=== PATIENT | male | born 1960 | race Hispanic/Latino ===

== ENCOUNTER 2021-10-29 08:44 | Inpatient (IN) | payer BC, MEDICARE ==
[2021-10-29] MEDS ORDERED: SODIUM CHLORIDE 0.9% 1000 ML 1,000 ML IV ONE (09:34)
--- NOTE | 2021-10-29 09:40 | Emergency Department Report ---
ED Altered Mental Status HPI - General Chief Complaint: Altered Mental Status Stated Complaint: AMS Time Seen by Provider: 10/29/21 09:10 Source: patient, EMS Mode of arrival: Stretcher Limitations: Altered Mental Status - History of Present Illness Initial Comments: 61-year-old male with a history of chronic back pain for the last 20 years on multiple opioid pain including fentanyl patch and Percocet, also with diagnosis of Parkinson disease in the last 1 year taking beta-adonis brought in this morning with altered mental status by the spouse. According to spouse patient usually need help to put on his socks and shoes but this morning was not able to get up and put weight on his legs because of weakness. Patient also was evaluated for right lower leg DVT about 5 to 6 days ago in the emergency room and noted to be negative for any blood clots. Patient continued to have red rash on the right lower leg associated with warmth. He also have been scratching the left lower leg as well with few abrasion. No fever or chills reported specifically. Patient and spouse also report that he has been complaining of burning in urination but no urgency. No other modifying or associated factors reported. When asked patient reported that he did not know what is going on but does not appear confused. - Related Data Home Medications Medication Instructions Recorded Confirmed Last Taken Furosemide [Lasix TAB] 20 mg PO QDAY 10/30/21 10/30/21 Unknown Multivit-Min/FA/Lycopen/Lutein 1 tab PO DAILY 10/30/21 10/30/21 10/29/21 [Centrum Silver Tablet] Oxycodone HCl/Acetaminophen 1 each PO QID 10/30/21 10/30/21 Unknown [Oxycodone-Acetaminophen 10-325] Potassium Chloride [Klor-Con M10] 10 meq PO QDAY 10/30/21 10/30/21 Unknown Primidone [Mysoline] 100 mg PO QID 10/30/21 10/30/21 Unknown fentaNYL 12 MCG/HR Patch 72hr 12 mcg TD Q72H 10/30/21 10/30/21 10/30/21 [DURAGESIC 12 MCG/HR Patch 72hr] fentaNYL 25 MCG/HR Patch 72hr 25 mcg TD Q3D 10/30/21 10/30/21 10/30/21 [DURAGESIC 25 MCG/HR Patch 72hr] methOCARBAMOL [Robaxin TAB] 750 mg PO QDAY PRN 10/30/21 10/30/21 Unknown propranoloL [Inderal] 30 mg PO BID 10/30/21 10/30/21 Unknown Previous Rx's Medication Instructions Recorded Last Taken Type Amoxicillin/K Clav Tab [Augmentin 1 tab PO Q12HR #10 tab 10/31/21 Unknown Rx 875 mg] Allergies Allergy/AdvReac Type Severity Reaction Status Date / Time Penicillins Allergy burning Verified 10/30/21 10:32 vancomycin Allergy burning Verified 10/30/21 10:33 ED Review of Systems ROS: Stated complaint: AMS Other details as noted in HPI Comment: All other systems reviewed and negative Neurological: other (Altered mental status change) ED Past Medical Hx - Medications Home Medications: Home Medications Medication Instructions Recorded Confirmed Last Taken Type Furosemide [Lasix TAB] 20 mg PO QDAY 10/30/21 10/30/21 Unknown History Multivit-Min/FA/Lycopen/Lutein 1 tab PO DAILY 10/30/21 10/30/21 10/29/21 History [Centrum Silver Tablet] Oxycodone HCl/Acetaminophen 1 each PO QID 10/30/21 10/30/21 Unknown History [Oxycodone-Acetaminophen 10-325] Potassium Chloride [Klor-Con M10] 10 meq PO QDAY 10/30/21 10/30/21 Unknown History Primidone [Mysoline] 100 mg PO QID 10/30/21 10/30/21 Unknown History fentaNYL 12 MCG/HR Patch 72hr 12 mcg TD Q72H 10/30/21 10/30/21 10/30/21 History [DURAGESIC 12 MCG/HR Patch 72hr] fentaNYL 25 MCG/HR Patch 72hr 25 mcg TD Q3D 10/30/21 10/30/21 10/30/21 History [DURAGESIC 25 MCG/HR Patch 72hr] methOCARBAMOL [Robaxin TAB] 750 mg PO QDAY PRN 10/30/21 10/30/21 Unknown History propranoloL [Inderal] 30 mg PO BID 10/30/21 10/30/21 Unknown History Amoxicillin/K Clav Tab [Augmentin 1 tab PO Q12HR #10 tab 10/31/21 Unknown Rx 875 mg] ED Physical Exam - General Limitations: Altered Mental Status General appearance: alert, in no apparent distress - Head Head exam: Present: atraumatic, normal inspection - Eye Eye exam: Present: normal appearance Pupils: Present: normal accommodation - ENT ENT exam: Present: normal exam, normal orophraynx, mucous membranes dry - Neck Neck exam: Present: normal inspection, full ROM. Absent: tenderness - Respiratory Respiratory exam: Present: normal lung sounds bilaterally. Absent: respiratory distress, accessory muscle use - Cardiovascular Cardiovascular Exam: Present: regular rate, normal rhythm, normal heart sounds - GI/Abdominal GI/Abdominal exam: Present: soft, normal bowel sounds. Absent: distended, tenderness - Extremities Exam Extremities exam: Present: tenderness (With mild blanchable erythema noted bilaterally associated with warmth) - Back Exam Back exam: Absent: tenderness - Neurological Exam Neurological exam: Present: alert, oriented X3 - Psychiatric Psychiatric exam: Present: normal affect - Skin Skin exam: Present: warm, rash (Consistent with cellulitis), erythema ED Course Vital Signs 10/29/21 10/29/21 10/29/21 08:44 09:06 09:15 Temperature 99.3 F Pulse Rate 80 82 77 Respiratory 18 20 24 Rate Blood Pressure 152/59 Blood Pressure 147/62 [Left] O2 Sat by Pulse 96 98 97 Oximetry 10/29/21 10/29/21 10/29/21 09:31 09:45 09:53 Temperature Pulse Rate 88 92 H Respiratory 20 19 Rate Blood Pressure 145/63 145/63 Blood Pressure [Left] O2 Sat by Pulse 97 98 99 Oximetry 10/29/21 10/29/21 10/29/21 10:01 10:15 10:31 Temperature Pulse Rate 91 H 84 89 Respiratory 21 22 20 Rate Blood Pressure 157/79 157/79 154/70 Blood Pressure [Left] O2 Sat by Pulse 98 97 98 Oximetry 10/29/21 10/29/21 10/29/21 10:45 11:01 11:15 Temperature Pulse Rate 92 H Respiratory 16 16 Rate Blood Pressure 154/70 159/83 159/83 Blood Pressure [Left] O2 Sat by Pulse 98 85 99 Oximetry 10/29/21 10/29/21 10/29/21 11:31 11:45 12:01 Temperature Pulse Rate Respiratory Rate Blood Pressure 148/72 148/72 152/77 Blood Pressure [Left] O2 Sat by Pulse 98 99 97 Oximetry 10/29/21 10/29/21 10/29/21 12:15 12:31 12:45 Temperature Pulse Rate Respiratory Rate Blood Pressure 152/77 145/74 152/77 Blood Pressure [Left] O2 Sat by Pulse 98 96 97 Oximetry 10/29/21 10/29/21 10/29/21 13:00 14:42 14:45 Temperature Pulse Rate 92 H Respiratory 20 Rate Blood Pressure 145/74 154/77 154/77 Blood Pressure [Left] O2 Sat by Pulse 97 99 99 Oximetry 10/29/21 10/29/21 10/29/21 15:00 15:16 15:31 Temperature Pulse Rate 92 H 95 H 86 Respiratory 22 22 22 Rate Blood Pressure 154/77 154/77 154/77 Blood Pressure [Left] O2 Sat by Pulse 99 98 98 Oximetry 10/29/21 10/29/21 10/29/21 15:45 16:01 16:15 Temperature Pulse Rate 87 86 87 Respiratory 22 28 H 41 H Rate Blood Pressure 162/82 162/82 162/82 Blood Pressure [Left] O2 Sat by Pulse 100 98 98 Oximetry 10/29/21 10/29/21 10/29/21 16:31 16:45 17:01 Temperature Pulse Rate 87 89 88 Respiratory 52 H 26 H 28 H Rate Blood Pressure 162/82 162/82 162/82 Blood Pressure [Left] O2 Sat by Pulse 99 98 97 Oximetry 10/29/21 10/29/21 10/29/21 17:15 17:31 17:45 Temperature Pulse Rate 88 85 Respiratory 25 H 12 Rate Blood Pressure 162/82 162/82 162/82 Blood Pressure [Left] O2 Sat by Pulse 97 98 97 Oximetry 10/29/21 10/29/21 10/29/21 18:01 18:15 18:31 Temperature Pulse Rate 89 Respiratory 28 H Rate Blood Pressure 169/82 169/82 169/82 Blood Pressure [Left] O2 Sat by Pulse 97 98 98 Oximetry 10/29/21 10/29/21 10/29/21 18:45 19:01 19:15 Temperature Pulse Rate Respiratory Rate Blood Pressure 169/82 153/77 153/77 Blood Pressure [Left] O2 Sat by Pulse 97 97 98 Oximetry 10/29/21 10/29/21 10/29/21 19:31 19:45 20:01 Temperature Pulse Rate Respiratory Rate Blood Pressure 153/77 153/77 149/81 Blood Pressure [Left] O2 Sat by Pulse 97 97 97 Oximetry 10/29/21 10/29/21 10/29/21 20:15 20:30 20:45 Temperature Pulse Rate 96 H 92 H Respiratory 26 H 23 Rate Blood Pressure 149/81 151/74 151/74 Blood Pressure [Left] O2 Sat by Pulse 98 97 97 Oximetry 10/29/21 10/29/21 10/29/21 21:01 21:15 21:31 Temperature Pulse Rate 94 H 98 H 89 Respiratory 15 16 25 H Rate Blood Pressure 149/81 149/81 149/81 Blood Pressure [Left] O2 Sat by Pulse 98 98 97 Oximetry 10/29/21 10/29/21 10/29/21 21:45 22:01 22:15 Temperature Pulse Rate 94 H 94 H 95 H Respiratory 24 13 22 Rate Blood Pressure 149/81 161/79 161/79 Blood Pressure [Left] O2 Sat by Pulse 97 97 98 Oximetry 10/29/21 10/29/21 10/29/21 22:31 22:45 22:57 Temperature Pulse Rate 89 99 H 93 H Respiratory 15 16 20 Rate Blood Pressure 161/79 161/79 161/79 Blood Pressure [Left] O2 Sat by Pulse 97 98 97 Oximetry 10/29/21 10/29/21 10/29/21 23:01 23:11 23:21 Temperature Pulse Rate 91 H 94 H 92 H Respiratory 20 18 21 Rate Blood Pressure 161/79 161/79 161/79 Blood Pressure [Left] O2 Sat by Pulse 98 98 97 Oximetry 10/29/21 10/29/21 23:31 23:41 Temperature Pulse Rate 88 89 Respiratory 20 15 Rate Blood Pressure 161/79 161/79 Blood Pressure [Left] O2 Sat by Pulse 98 98 Oximetry - Reevaluation(s) Reevaluation #1: 10/29/21 14:22 Pt signed out to Dr Solis while waiting for CT abd/pel result and treatment response on lactulose -- - Lab Data Result diagrams: 10/29/21 10:00 10/30/21 04:36 Lab Results 10/29/21 10/29/21 10/29/21 Range/Units 10:00 10:00 10:00 WBC 10.7 (4.5-11.0) K/mm3 RBC 3.95 (3.65-5.03) M/mm3 Hgb 12.6 (11.8-15.2) gm/dl Hct 36.6 (35.5-45.6) % MCV 93 (84-94) fl MCH 32 (28-32) pg MCHC 35 H (32-34) % RDW 15.3 H (13.2-15.2) % Plt Count 83 L (140-440) K/mm3 [place] % (Auto) [employer] Advisor Add Manual Diff Complete Total Counted 100 Seg Neuts % (Manual) 71.0 H (40.0-70.0) % Band Neutrophils % 0 % Lymphocytes % (Manual) 13.0 L (13.4-35.0) % Reactive Lymphs % (Man) 2.0 % Monocytes % (Manual) 13.0 H (0.0-7.3) % Eosinophils % (Manual) 0 (0.0-4.3) % Basophils % (Manual) 1.0 (0.0-1.8) % Metamyelocytes % 0 % Myelocytes % 0 % Promyelocytes % 0 % Blast Cells % 0 % Nucleated RBC % Not Reportable Seg Neutrophils # Man 7.6 (1.8-7.7) K/mm3 Band Neutrophils # 0.0 K/mm3 Lymphocytes # (Manual) 1.4 (1.2-5.4) K/mm3 Abs React Lymphs (Man) 0.2 K/mm3 Monocytes # (Manual) 1.4 H (0.0-0.8) K/mm3 Eosinophils # (Manual) 0.0 (0.0-0.4) K/mm3 Basophils # (Manual) 0.1 (0.0-0.1) K/mm3 Metamyelocytes # 0.0 K/mm3 Myelocytes # 0.0 K/mm3 Promyelocytes # 0.0 K/mm3 Blast Cells # 0.0 K/mm3 WBC Morphology Not Reportable Hypersegmented Neuts Not Reportable Hyposegmented Neuts Few Hypogranular Neuts Not Reportable Smudge Cells Not Reportable Toxic Granulation Not Reportable Toxic Vacuolation Not Reportable Dohle Bodies Not Reportable Pelger-Huet Anomaly Not Reportable Usman Rods Not Reportable Platelet Estimate Consistent w auto Clumped Platelets Not Reportable Plt Clumps, EDTA Not Reportable Large Platelets Not Reportable Giant Platelets Not Reportable Platelet Satelliting Not Reportable Plt Morphology Comment Not Reportable RBC Morphology Not Reportable Dimorphic RBCs Not Reportable Polychromasia Rare Hypochromasia Not Reportable Poikilocytosis Not Reportable Anisocytosis 1+ Microcytosis Few Macrocytosis Not Reportable Spherocytes Not Reportable Pappenheimer Bodies Not Reportable Sickle Cells Not Reportable Target Cells Not Reportable Tear Drop Cells Not Reportable Ovalocytes Not Reportable Helmet Cells Not Reportable [place] Bodies Not Reportable [place] Rings Not Reportable Xavier Cells Not Reportable Bite Cells Not Reportable Crenated Cell Not Reportable Elliptocytes Not Reportable Acanthocytes (Spur) Not Reportable Rouleaux Not Reportable Hemoglobin C Crystals Not Reportable Schistocytes Not Reportable Malaria parasites Not Reportable Jose Bodies Not Reportable Hem Pathologist Commnt No PT 19.2 H (12.2-14.9) Sec. INR 1.43 H (0.87-1.13) APTT 39.6 H (24.2-36.6) Sec. Sodium (137-145) mmol/L Potassium (3.6-5.0) mmol/L Chloride (98-107) mmol/L Carbon Dioxide (22-30) mmol/L Anion Gap mmol/L BUN (9-20) mg/dL Creatinine (0.8-1.3) mg/dL Estimated GFR ml/min BUN/Creatinine Ratio % Glucose (75-100) mg/dL Lactic Acid 2.30 H* (0.7-2.0) mmol/L Calcium (8.4-10.2) mg/dL Total Bilirubin (0.1-1.2) mg/dL AST (5-40) units/L ALT (7-56) units/L Alkaline Phosphatase (35-129) units/L Ammonia (25-60) umol/L Troponin T (0.00-0.029) ng/mL Total Protein (6.3-8.2) g/dL Albumin (3.9-5) g/dL Albumin/Globulin Ratio % Urine Color (Yellow) Urine Turbidity (Clear) Urine pH (5.0-7.0) Ur Specific [place] (1.003-1.030) Urine Protein (Negative) mg/dL Urine Glucose (UA) (Negative) mg/dL Urine Ketones (Negative) mg/dL Urine Blood (Negative) Urine Nitrite (Negative) Ur Reducing Substances Urine Bilirubin (Negative) Urine Ictotest Urine Urobilinogen (<2.0) mg/dL Ur Leukocyte Esterase (Negative) Urine WBC (Auto) (0.0-6.0) /HPF Urine RBC (Auto) (0.0-6.0) /HPF U Epithel Cells (Auto) (0-13.0) /HPF Salicylates (2.8-20.0) mg/dL Urine Opiates Screen Urine Methadone Screen Acetaminophen (10.0-30.0) ug/mL Ur Barbiturates Screen Ur Phencyclidine Scrn Ur Amphetamines Screen U Benzodiazepines Scrn Urine Cocaine Screen U Marijuana (THC) Screen Drugs of Abuse Note 10/29/21 10/29/21 10/29/21 Range/Units 10:00 10:00 10:00 WBC (4.5-11.0) K/mm3 RBC (3.65-5.03) M/mm3 Hgb (11.8-15.2) gm/dl Hct (35.5-45.6) % MCV (84-94) fl MCH (28-32) pg MCHC (32-34) % RDW (13.2-15.2) % Plt Count (140-440) K/mm3 [place] % (Auto) Add Manual Diff Total Counted Seg Neuts % (Manual) (40.0-70.0) % Band Neutrophils % % Lymphocytes % (Manual) (13.4-35.0) % Reactive Lymphs % (Man) % Monocytes % (Manual) (0.0-7.3) % Eosinophils % (Manual) (0.0-4.3) % Basophils % (Manual) (0.0-1.8) % Metamyelocytes % % Myelocytes % % Promyelocytes % % Blast Cells % % Nucleated RBC % Seg Neutrophils # Man (1.8-7.7) K/mm3 Band Neutrophils # K/mm3 Lymphocytes # (Manual) (1.2-5.4) K/mm3 Abs React Lymphs (Man) K/mm3 Monocytes # (Manual) (0.0-0.8) K/mm3 Eosinophils # (Manual) (0.0-0.4) K/mm3 Basophils # (Manual) (0.0-0.1) K/mm3 Metamyelocytes # K/mm3 Myelocytes # K/mm3 Promyelocytes # K/mm3 Blast Cells # K/mm3 WBC Morphology Hypersegmented Neuts Hyposegmented Neuts Hypogranular Neuts Smudge Cells Toxic Granulation Toxic Vacuolation Dohle Bodies Pelger-Huet Anomaly Usman Rods Platelet Estimate Clumped Platelets Plt Clumps, EDTA Large Platelets Giant Platelets Platelet Satelliting Plt Morphology Comment RBC Morphology Dimorphic RBCs Polychromasia Hypochromasia Poikilocytosis Anisocytosis Microcytosis Macrocytosis Spherocytes Pappenheimer Bodies Sickle Cells Target Cells Tear Drop Cells Ovalocytes Helmet Cells [place] Bodies [place] Rings [place] Cells Bite Cells Crenated Cell Elliptocytes Acanthocytes (Spur) Rouleaux Hemoglobin C Crystals Schistocytes Malaria parasites Jose Bodies Hem Pathologist Commnt PT (12.2-14.9) Sec. INR (0.87-1.13) APTT (24.2-36.6) Sec. Sodium 135 L (137-145) mmol/L Potassium 3.8 (3.6-5.0) mmol/L Chloride 99.4 (98-107) mmol/L Carbon Dioxide 22 (22-30) mmol/L Anion Gap 17 mmol/L BUN 14 (9-20) mg/dL Creatinine 0.7 L (0.8-1.3) mg/dL Estimated GFR > 60 ml/min BUN/Creatinine Ratio 20 % Glucose 113 H (75-100) mg/dL Lactic Acid (0.7-2.0) mmol/L Calcium 8.4 (8.4-10.2) mg/dL Total Bilirubin 3.40 H (0.1-1.2) mg/dL AST 65 H (5-40) units/L ALT 25 (7-56) units/L Alkaline Phosphatase 99 (35-129) units/L Ammonia 75.0 H (25-60) umol/L Troponin T 0.013 (0.00-0.029) ng/mL Total Protein 6.6 (6.3-8.2) g/dL Albumin 3.3 L (3.9-5) g/dL Albumin/Globulin Ratio 1.0 % Urine Color (Yellow) Urine Turbidity (Clear) Urine pH (5.0-7.0) Ur Specific [place] (1.003-1.030) Urine Protein (Negative) mg/dL Urine Glucose (UA) (Negative) mg/dL Urine Ketones (Negative) mg/dL Urine Blood (Negative) Urine Nitrite (Negative) Ur Reducing Substances Urine Bilirubin (Negative) Urine Ictotest Urine Urobilinogen (<2.0) mg/dL Ur Leukocyte Esterase (Negative) Urine WBC (Auto) (0.0-6.0) /HPF Urine RBC (Auto) (0.0-6.0) /HPF U Epithel Cells (Auto) (0-13.0) /HPF Salicylates < 0.3 L (2.8-20.0) mg/dL Urine Opiates Screen Urine Methadone Screen Acetaminophen (10.0-30.0) ug/mL Ur Barbiturates Screen Ur Phencyclidine Scrn Ur Amphetamines Screen U Benzodiazepines Scrn Urine Cocaine Screen U Marijuana (THC) Screen Drugs of Abuse Note 10/29/21 10/29/21 10/29/21 Range/Units 10:00 11:28 11:28 WBC (4.5-11.0) K/mm3 RBC (3.65-5.03) M/mm3 Hgb (11.8-15.2) gm/dl Hct (35.5-45.6) % MCV (84-94) fl MCH (28-32) pg MCHC (32-34) % RDW (13.2-15.2) % Plt Count (140-440) K/mm3 [place] % (Auto) Add Manual Diff Total Counted Seg Neuts % (Manual) (40.0-70.0) % Band Neutrophils % % Lymphocytes % (Manual) (13.4-35.0) % Reactive Lymphs % (Man) % Monocytes % (Manual) (0.0-7.3) % Eosinophils % (Manual) (0.0-4.3) % Basophils % (Manual) (0.0-1.8) % Metamyelocytes % % Myelocytes % % Promyelocytes % % Blast Cells % % Nucleated RBC % Seg Neutrophils # Man (1.8-7.7) K/mm3 Band Neutrophils # K/mm3 Lymphocytes # (Manual) (1.2-5.4) K/mm3 Abs React Lymphs (Man) K/mm3 Monocytes # (Manual) (0.0-0.8) K/mm3 Eosinophils # (Manual) (0.0-0.4) K/mm3 Basophils # (Manual) (0.0-0.1) K/mm3 Metamyelocytes # K/mm3 Myelocytes # K/mm3 Promyelocytes # K/mm3 Blast Cells # K/mm3 WBC Morphology Hypersegmented Neuts Hyposegmented Neuts Hypogranular Neuts Smudge Cells Toxic Granulation Toxic Vacuolation Dohle Bodies Pelger-Huet Anomaly Usman Rods Platelet Estimate Clumped Platelets Plt Clumps, EDTA Large Platelets Giant Platelets Platelet Satelliting Plt Morphology Comment RBC Morphology Dimorphic RBCs Polychromasia Hypochromasia Poikilocytosis Anisocytosis Microcytosis Macrocytosis Spherocytes Pappenheimer Bodies Sickle Cells Target Cells Tear Drop Cells Ovalocytes Helmet Cells [place] Bodies [place] Rings Xavier Cells Bite Cells Crenated Cell Elliptocytes Acanthocytes (Spur) Rouleaux Hemoglobin C Crystals Schistocytes Malaria parasites Jose Bodies Hem Pathologist Commnt PT (12.2-14.9) Sec. INR (0.87-1.13) APTT (24.2-36.6) Sec. Sodium (137-145) mmol/L Potassium (3.6-5.0) mmol/L Chloride (98-107) mmol/L Carbon Dioxide (22-30) mmol/L Anion Gap mmol/L BUN (9-20) mg/dL Creatinine (0.8-1.3) mg/dL Estimated GFR ml/min BUN/Creatinine Ratio % Glucose (75-100) mg/dL Lactic Acid (0.7-2.0) mmol/L Calcium (8.4-10.2) mg/dL Total Bilirubin (0.1-1.2) mg/dL AST (5-40) units/L ALT (7-56) units/L Alkaline Phosphatase (35-129) units/L Ammonia (25-60) umol/L Troponin T (0.00-0.029) ng/mL Total Protein (6.3-8.2) g/dL Albumin (3.9-5) g/dL Albumin/Globulin Ratio % Urine Color Heather (Yellow) Urine Turbidity Clear (Clear) Urine pH 6.5 (5.0-7.0) Ur Specific [place] 1.010 (1.003-1.030) Urine Protein <15 mg/dl (Negative) mg/dL Urine Glucose (UA) Negative (Negative) mg/dL Urine Ketones Negative (Negative) mg/dL Urine Blood Negative (Negative) Urine Nitrite Negative (Negative) Ur Reducing Substances Not Reportable Urine Bilirubin Negative (Negative) Urine Ictotest Not Reportable Urine Urobilinogen 8.0 H (<2.0) mg/dL Ur Leukocyte Esterase Negative (Negative) Urine WBC (Auto) 2.0 (0.0-6.0) /HPF Urine RBC (Auto) 9.0 (0.0-6.0) /HPF U Epithel Cells (Auto) 2.0 (0-13.0) /HPF Salicylates (2.8-20.0) mg/dL Urine Opiates Screen Negative Urine Methadone Screen Negative Acetaminophen 5.0 L (10.0-30.0) ug/mL Ur Barbiturates Screen Positive Ur Phencyclidine Scrn Negative Ur Amphetamines Screen Negative U Benzodiazepines Scrn Negative Urine Cocaine Screen Negative U Marijuana (THC) Screen Negative Drugs of Abuse Note Disclamer 10/29/21 10/29/21 Range/Units 13:38 16:39 WBC (4.5-11.0) K/mm3 RBC (3.65-5.03) M/mm3 Hgb (11.8-15.2) gm/dl Hct (35.5-45.6) % MCV (84-94) fl MCH (28-32) pg MCHC (32-34) % RDW (13.2-15.2) % Plt Count (140-440) K/mm3 [place] % (Auto) Add Manual Diff Total Counted Seg Neuts % (Manual) (40.0-70.0) % Band Neutrophils % % Lymphocytes % (Manual) (13.4-35.0) % Reactive Lymphs % (Man) % Monocytes % (Manual) (0.0-7.3) % Eosinophils % (Manual) (0.0-4.3) % Basophils % (Manual) (0.0-1.8) % Metamyelocytes % % Myelocytes % % Promyelocytes % % Blast Cells % % Nucleated RBC % Seg Neutrophils # Man (1.8-7.7) K/mm3 Band Neutrophils # K/mm3 Lymphocytes # (Manual) (1.2-5.4) K/mm3 Abs React Lymphs (Man) K/mm3 Monocytes # (Manual) (0.0-0.8) K/mm3 Eosinophils # (Manual) (0.0-0.4) K/mm3 Basophils # (Manual) (0.0-0.1) K/mm3 Metamyelocytes # K/mm3 Myelocytes # K/mm3 Promyelocytes # K/mm3 Blast Cells # K/mm3 WBC Morphology Hypersegmented Neuts Hyposegmented Neuts Hypogranular Neuts Smudge Cells Toxic Granulation Toxic Vacuolation Dohle Bodies Pelger-Huet Anomaly Usman Rods Platelet Estimate Clumped Platelets Plt Clumps, EDTA Large Platelets Giant Platelets Platelet Satelliting Plt Morphology Comment RBC Morphology Dimorphic RBCs Polychromasia Hypochromasia Poikilocytosis Anisocytosis Microcytosis Macrocytosis Spherocytes Pappenheimer Bodies Sickle Cells Target Cells Tear Drop Cells Ovalocytes Helmet Cells [place] Bodies [place] Rings Xavier Cells Bite Cells Crenated Cell Elliptocytes Acanthocytes (Spur) Rouleaux Hemoglobin C Crystals Schistocytes Malaria parasites Jose Bodies Hem Pathologist Commnt PT (12.2-14.9) Sec. INR (0.87-1.13) APTT (24.2-36.6) Sec. Sodium (137-145) mmol/L Potassium (3.6-5.0) mmol/L Chloride (98-107) mmol/L Carbon Dioxide (22-30) mmol/L Anion Gap mmol/L BUN (9-20) mg/dL Creatinine (0.8-1.3) mg/dL Estimated GFR ml/min BUN/Creatinine Ratio % Glucose (75-100) mg/dL Lactic Acid 2.00 2.20 H* (0.7-2.0) mmol/L Calcium (8.4-10.2) mg/dL Total Bilirubin (0.1-1.2) mg/dL AST (5-40) units/L ALT (7-56) units/L Alkaline Phosphatase (35-129) units/L Ammonia (25-60) umol/L Troponin T (0.00-0.029) ng/mL Total Protein (6.3-8.2) g/dL Albumin (3.9-5) g/dL Albumin/Globulin Ratio % Urine Color (Yellow) Urine Turbidity (Clear) Urine pH (5.0-7.0) Ur Specific [place] (1.003-1.030) Urine Protein (Negative) mg/dL Urine Glucose (UA) (Negative) mg/dL Urine Ketones (Negative) mg/dL Urine Blood (Negative) Urine Nitrite (Negative) Ur Reducing Substances Urine Bilirubin (Negative) Urine Ictotest Urine Urobilinogen (<2.0) mg/dL Ur Leukocyte Esterase (Negative) Urine WBC (Auto) (0.0-6.0) /HPF Urine RBC (Auto) (0.0-6.0) /HPF U Epithel Cells (Auto) (0-13.0) /HPF Salicylates (2.8-20.0) mg/dL Urine Opiates Screen Urine Methadone Screen Acetaminophen (10.0-30.0) ug/mL Ur Barbiturates Screen Ur Phencyclidine Scrn Ur Amphetamines Screen U Benzodiazepines Scrn Urine Cocaine Screen U Marijuana (THC) Screen Drugs of Abuse Note - EKG Data -: EKG Interpreted by Me EKG shows normal: sinus rhythm Rate: normal 10/29/21 09:46 Noted with sinus arrhythmia at the rate of 85 bpm with premature ventricular complex but no ST elevation depression in this abnormal ECG. - Medical Decision Making here with AMS changes with this patient history of multiple opoiods pain medication this could be as a result of drug side effect but could not rule out other differentials that may involved pneumonia, urinary tract infection, myocardial infarction, cerebrovascular accident, liver or kidney failure, or systemic infection that leads to sepsis so in order to rule out the above we will go ahead and order routine labs that includes CBC, CMP, urinalysis, CT scan of the brain, lactic acid, chest x-ray, EKG and troponin. This could also be cellulitis considering that this patient has blanchable erythema on both legs with different stage of abrasion. In the meantime we will go ahead and start IV hydration while waiting for the above labs. CT head noted with No acute findings FINDINGS: BRAIN / INTRACRANIAL CONTENTS: No acute hemorrhage, mass effect, midline shift, hydrocephalus, or acute, large territorial infarct. No chronic infarction or encephalomalacia Left hemispheric convexity cortical sulci are more prominent than the right side; mild to moderate left perisylvian volume loss; left lateral ventricle is slightly larger than the right; these findings suggest mild volume loss in the left cerebral hemisphere Both temporal horn tips are normal suggesting normal medial temporal lobes CRANIOCERVICAL JUNCTION: No significant abnormality. ORBITS: No significant abnormality of visualized orbits. SINUSES / MASTOIDS: No significant abnormality of the visualized paranasal sinuses or mastoid air cells. ADDITIONAL FINDINGS: None. IMPRESSION: No focal mass, hemorrhage, hydrocephalus, or acute, large territorial infarct. Labs reviewed and noted with elevated AST 65 but normal ALT but abnormal T-bili with ammonia of 75 mg/dl -- this patient however did not have any history of liver cirrhosis or alcoholism. So for further evaluation the cause of hyperamminonia that could potentially cause hepatic-encephalopathy--I will go ahead and order lactulose and CT abd/pel and the gallbladder to rule out possibility of biliary tree obstruction. Critical care attestation.: If time is entered above; I have spent that time in minutes in the direct care of this critically ill patient, excluding procedure time. ED Disposition Clinical Impression: Hyperammonemia AMS (altered mental status) Qualifiers: Altered mental status type: unspecified Qualified Code(s): R41.82 - Altered mental status, unspecified Disposition: 30 STILL A PATIENT Is pt being admited?: No Does the pt Need Aspirin: No Condition: Stable Time of Disposition: 14:22
[2021-10-29 12:19] LABS: Alanine Aminotransferase 25 units/L (7-56); Albumin 3.3 g/dL (3.9-5); Blood Urea Nitrogen 14 mg/dL (9-20); Calcium 8.4 mg/dL (8.4-10.2); Hemolysis Index 25
[2021-10-29 12:25] LABS: INR 1.43 (0.87-1.13)
[2021-10-29 12:26] LABS: Partial Thromboplastin Time 39.6 Sec. (24.2-36.6)
[2021-10-29 12:27] LABS: Hematocrit 36.6 % (35.5-45.6); Hemoglobin 12.6 gm/dl (11.8-15.2); Mean Corpuscular HGB Conc 35 % (32-34); Mean Corpuscular Volume 93 fl (84-94); Red Blood Count 3.95 M/mm3 (3.65-5.03); Red Cell Distribution Width 15.3 % (13.2-15.2)
[2021-10-29 12:30] LABS: Platelet Count 83 K/mm3 (140-440)
[2021-10-29 12:56] LABS: BUN/Creatinine Ratio 20
[2021-10-29 13:23] LABS: Amphetamine Screen,Urine Negative; Benzodiazepines Screen,Urine Negative; Cannabinoid Screen,Urine Negative; Cocaine Screen,Urine Negative; Methadone Screen,Urine Negative; Opiate Screen,Urine Negative
[2021-10-29 13:25] LABS: Color,Urine Amber (Yellow)
[2021-10-29 13:26] LABS: Bilirubin,Urine Negative (Negative); Blood,Urine Negative (Negative); PH,Urine 6.5 (5.0-7.0); Protein,Urine <15 mg/dL mg/dL (Negative)
--- NOTE | 2021-10-29 13:29 | Cat Scan Report ---
NONENHANCED CT SCAN OF THE HEAD: INDICATION / CLINICAL INFORMATION: 61 years Male; Altered mental status. TECHNIQUE: Routine CT head without contrast. All CT scans at this location are performed using CT dos e reduction for ALARA by means of automated exposure control. COMPARISON: None. FINDINGS: BRAIN / INTRACRANIAL CONTENTS: No acute hemorrhage, mass effect, midline shift, hydrocephalus, or acu te, large territorial infarct. No chronic infarction or encephalomalacia Left hemispheric convexity cortical sulci are more prominent than the right side; mild to moderate le ft perisylvian volume loss; left lateral ventricle is slightly larger than the right; these findings suggest mild volume loss in the left cerebral hemisphere Both temporal horn tips are normal suggesting normal medial temporal lobes CRANIOCERVICAL JUNCTION: No significant abnormality. ORBITS: No significant abnormality of visualized orbits. SINUSES / MASTOIDS: No significant abnormality of the visualized paranasal sinuses or mastoid air jeronimo ls. ADDITIONAL FINDINGS: None. IMPRESSION: No focal mass, hemorrhage, hydrocephalus, or acute, large territorial infarct. Mild volume loss in the left cerebral hemisphere compared to the right side Signer Name: Tiny Field MD Signed: 10/29/2021 1:25 PM Workstation Name: [email or web address]
--- NOTE | 2021-10-29 13:52 | Electrocardiograph Report ---
[facility] Test Date: 2021-10-29 Test Time: 09:12:30 Pat Name: STEPHANIE PEREZ Department: Room: Gender: M Fig Washer: LAYLA : 1960 Requested By: JACE RUFF Order Number: [id number] Reading MD: Corina Walden Measurements Intervals [place] Rate: 85 P: -62 NH: 142 QRS: 6 QRSD: 89 T: QT: 394 QTc: 467 Interpretive Statements Ectopic atrial rhythm Ventricular premature complex No previous ECG available for comparison Electronically Signed On 10-29-2021 13:51:53 EDT by Corina Walden
[2021-10-29 14:24] LABS: Eosinophils % (Manual) 0 % (0.0-4.3); Total Cells Counted 100
[2021-10-29] MEDS ORDERED: LACTULOSE 20 GM/30 ML ORAL LIQD PO ONE (14:24)
[2021-10-29 14:26] LABS: Anisocytosis 1+; Platelet Estimate Consistent w Auto
--- NOTE | 2021-10-29 15:53 | Cat Scan Report ---
CT abdomen pelvis w con INDICATION: abnormal LFTs. COMPARISON: None TECHNIQUE: Abdominal and pelvic CT exam performed. All CT scans at this location are performed using CT dose reduction for ALARA by means of automated exposure control. FINDINGS: CT ABDOMEN and PELVIS: Lung Bases: No significant abnormality. Liver: The liver is small and slightly nodular in contour with caudate lobe hypertrophy. Biliary: No significant abnormality. Spleen: Spleen is enlarged. Pancreas: No significant abnormality. Adrenals: No significant abnormality. Kidneys: No significant abnormality. Lymphatics: No lymphadenopathy. Vasculature: There are paraesophageal varices. Recanalization of umbilical vein. Bowel:. There is multifocal small bowel and large bowel wall thickening with mucosal hyperemia. Niecy l appendix. Pelvis: No significant abnormality. Osseous Structures: Postoperative changes from L4-5 interbody fusion with advanced superior junction spondylosis with spinal canal and foraminal narrowing which is not well assessed on this exam No aggr essive osseous lesion. Additional Findings: Small volume ascites. IMPRESSION: 1. Findings suggest enterocolitis. 2. Cirrhosis with sequela of portal venous hypertension including small volume ascites. 3. Other chronic findings as above. Signer Name: Stuart Galicia MD Signed: 10/29/2021 3:48 PM Workstation Name: [id number]
--- NOTE | 2021-10-29 20:18 | History and Physical Report ---
History of Present Illness Chief complaint: He is weak, and more confused History of present illness: 61 YO Male with Chronic Liver disease complicated by Cirrhosis, CPS on Opioid therapy, Parkinsons Disease, Vascular Dementia, Cerebral Atherosclerosis presents to ED for evaluation. Patient is confused with diminished cognition at the time my evaluation and unable to provide history. Patient history taken EMS staff, ED staff, as well as patient who is at bedside for exam and interview. As per reports "he is more weak and confused today". Patient reports that over the past 1 week the patient has experienced increased weakness and confusion with acutely worsening symptoms over the past 24 hours. EMS was notified and upon arrival the patient was found to be in distress and subsequent transported to [facility] for further care and evaluation of the aforementioned symptoms. The patient was seen and evaluated emergency department. All lab and imaging studies reviewed. Patient found to have chr onic liver disease, hyperammonemia, hepatic encephalopathy, metabolic acidosis, malnutrition, hyponatremia, and elevated prothrombin time. Patient admitted to telemetry due to increased risk of worsening symptoms and for medical stabilization. No reports of fever, chills, chest pain, palpitation, adductive cough, skin rash, recent contact, known exposure to COVID-19. No prior admission for review. No medication listed at time of admission for reconciliation. Advanced care planning conducted in ED. Patient has diminished cognition but has a positive gag reflex and is able to protect his airway without difficulty the time my evaluation. Past History Past Medical History: other (see HPI) Past Surgical History: Other (spiine surgery) Social history: , lives with family Family history: diabetes, hypertension Medications and Allergies Allergies Allergy/AdvReac Type Severity Reaction Status Date / Time Penicillins Allergy Unknown Verified 10/29/21 08:53 Review of Systems ROS unobtainable: due to mental status Exam - Constitutional Vitals: Temp Pulse Resp BP Pulse Ox 99.3 F 89 28 H 169/82 98 10/29/21 08:44 10/29/21 18:01 10/29/21 18:01 10/29/21 18:15 10/29/21 18:15 General appearance: Present: mild distress - EENT Eyes: Present: PERRL, scleral icterus ENT: hearing intact, clear oral mucosa, hearing decreased - Neck Neck: Present: supple, normal ROM - Respiratory Respiratory effort: normal Respiratory: bilateral: diminished - Cardiovascular Rhythm: regular - Extremities Extremities: pulses symmetrical, No edema Peripheral Pulses: within normal limits - Abdominal General gastrointestinal: Present: soft, non-tender, non-distended, normal bowel sounds - Integumentary Integumentary: Present: clear, dry, clammy, decreased turgor - Musculoskeletal Musculoskeletal: generalized weakness - Psychiatric Psychiatric: no appropriate mood/affect, no intact judgment & insight, no memory intact - Neurologic Neurologic: CNII-XII intact, no focal deficits, moves all extremities, no gait normal HEART Score - HEART Score Troponin: Troponin T 0.013 ng/mL (0.00-0.029) 10/29/21 10:00 Results - Labs CBC & Chem 7: 10/29/21 10:00 10/29/21 10:00 Labs: Abnormal lab results 10/29/21 10/29/21 10/29/21 Range/Units 10:00 10:00 10:00 MCHC 35 H (32-34) % RDW 15.3 H (13.2-15.2) % Plt Count 83 L (140-440) K/mm3 Seg Neuts % (Manual) 71.0 H (40.0-70.0) % Lymphocytes % (Manual) 13.0 L (13.4-35.0) % Monocytes % (Manual) 13.0 H (0.0-7.3) % Monocytes # (Manual) 1.4 H (0.0-0.8) K/mm3 PT 19.2 H (12.2-14.9) Sec. INR 1.43 H (0.87-1.13) APTT 39.6 H (24.2-36.6) Sec. Sodium (137-145) mmol/L Creatinine (0.8-1.3) mg/dL Glucose (75-100) mg/dL Lactic Acid 2.30 H* (0.7-2.0) mmol/L Total Bilirubin (0.1-1.2) mg/dL AST (5-40) units/L Ammonia (25-60) umol/L Albumin (3.9-5) g/dL Urine Urobilinogen (<2.0) mg/dL Salicylates (2.8-20.0) mg/dL Acetaminophen (10.0-30.0) ug/mL 10/29/21 10/29/21 10/29/21 Range/Units 10:00 10:00 10:00 MCHC (32-34) % RDW (13.2-15.2) % Plt Count (140-440) K/mm3 Seg Neuts % (Manual) (40.0-70.0) % Lymphocytes % (Manual) (13.4-35.0) % Monocytes % (Manual) (0.0-7.3) % Monocytes # (Manual) (0.0-0.8) K/mm3 PT (12.2-14.9) Sec. INR (0.87-1.13) APTT (24.2-36.6) Sec. Sodium 135 L (137-145) mmol/L Creatinine 0.7 L (0.8-1.3) mg/dL Glucose 113 H (75-100) mg/dL Lactic Acid (0.7-2.0) mmol/L Total Bilirubin 3.40 H (0.1-1.2) mg/dL AST 65 H (5-40) units/L Ammonia 75.0 H (25-60) umol/L Albumin 3.3 L (3.9-5) g/dL Urine Urobilinogen (<2.0) mg/dL Salicylates < 0.3 L (2.8-20.0) mg/dL Acetaminophen (10.0-30.0) ug/mL 10/29/21 10/29/21 10/29/21 Range/Units 10:00 11:28 16:39 MCHC (32-34) % RDW (13.2-15.2) % Plt Count (140-440) K/mm3 Seg Neuts % (Manual) (40.0-70.0) % Lymphocytes % (Manual) (13.4-35.0) % Monocytes % (Manual) (0.0-7.3) % Monocytes # (Manual) (0.0-0.8) K/mm3 PT (12.2-14.9) Sec. INR (0.87-1.13) APTT (24.2-36.6) Sec. Sodium (137-145) mmol/L Creatinine (0.8-1.3) mg/dL Glucose (75-100) mg/dL Lactic Acid 2.20 H* (0.7-2.0) mmol/L Total Bilirubin (0.1-1.2) mg/dL AST (5-40) units/L Ammonia (25-60) umol/L Albumin (3.9-5) g/dL Urine Urobilinogen 8.0 H (<2.0) mg/dL Salicylates (2.8-20.0) mg/dL Acetaminophen 5.0 L (10.0-30.0) ug/mL Assessment and Plan - Patient Problems (1) Hepatic encephalopathy Current Visit: Yes Status: Acute Plan to address problem: CT scan head, neuro check, seizure precaution, aspiration precautions, lactulose, supportive care, (2) Chronic liver disease and cirrhosis Current Visit: Yes Status: Acute Plan to address problem: Supportive care, outpatient GI follow-up. (3) Hyponatremia syndrome Current Visit: Yes Status: Acute Plan to address problem: IV fluid resuscitation therapy, BMP, repeat BMP in a.m., monitor fluid balance. (4) Esophageal varices Current Visit: Yes Status: Acute Qualifiers: Esophageal varices bleeding: without bleeding Plan to address problem: Chronic, supportive care. Outpatient GI follow-up. No active bleeding at this time. (5) Metabolic acidosis Current Visit: Yes Status: Acute Plan to address problem: IV for resuscitation therapy, BMP, repeat BMP in AM. (6) Chronic pain syndrome Current Visit: Yes Status: Acute Plan to address problem: Pain control, supportive care, steroid taper, continue medical management. Monitor acetaminophen level. (7) Elevated partial thromboplastin time (PTT) Current Visit: Yes Status: Acute Plan to address problem: Suspected secondary to chronic liver disease, continue to monitor. No active bleeding at this time. (8) DVT prophylaxis Current Visit: Yes Status: Acute Plan to address problem: SCD to bilateral lower extremities while in bed (9) Advance care planning Current Visit: Yes Status: Acute Plan to address problem: Disease education data, care plan discussed, diagnoses discussed, prognosis di scussed, patient is full code, patient acknowledges understanding and agreement with care plan, +30 minutes. (10) Preventative health care Current Visit: Yes Status: Acute Plan to address problem: Patient and family counseled regarding home safety, fall precautions, outpatient follow-up with primary care physician for all age and risk factor appropriate screening test. +30 minutes.
[2021-10-29] MEDS ORDERED: ALBUTEROL 2.5 MG/3 ML NEBU IH PRN (20:38)
[2021-10-29] MEDS ORDERED: HYDROmorphone 0.5 MG/0.5 ML INJ IV PRN (20:38)
[2021-10-29] MEDS ORDERED: ONDANSETRON 4 MG/2 ML INJ IV PRN (20:38)
[2021-10-29] MEDS ORDERED: IBUPROFEN 600 MG TAB PO PRN (20:38)
[2021-10-29] MEDS ORDERED: SODIUM CHLORIDE 0.9% 1000 ML 1,000 ML IV SCH (20:45)
[2021-10-30] MEDS ORDERED: IBUPROFEN 200 MG TAB PO PRN (01:06)
[2021-10-30] MEDS ORDERED: IBUPROFEN 400 MG TAB PO PRN (02:00)
[2021-10-30] MEDS: oxyCODONE /ACETAMINOPHEN 5-325MG TAB PO PRN (03:57)
[2021-10-30 06:05] LABS: Alanine Aminotransferase 21 units/L (7-56); Albumin 2.9 g/dL (3.9-5); Blood Urea Nitrogen 14 mg/dL (9-20); Hemolysis Index 1
[2021-10-30 06:07] LABS: BUN/Creatinine Ratio 20
[2021-10-30] MEDS ORDERED: MAGNESIUM SULFATE 2 GM/50 ML BAG IV ONE (06:22)
[2021-10-30] MEDS ORDERED: MAGNESIUM SULFATE 1 GM in SODIUM CHLORIDE 0.9% 50 ML IV ONE (07:30)
[2021-10-30] MEDS ORDERED: POTASSIUM CHLORIDE ER 20 MEQ TAB PO SCH (09:00)
--- NOTE | 2021-10-30 11:31 | Progress Note ---
Assessment and Plan Assessment and plan: #Sepsis #possible enterocolitis -tachycardia, febrile -Blood cultures ordered, UA and urine culture pending -CT abdomen shows possible enterocolitis -due to cirrhosis, will start rocephin for probable intraabdominal infection -c diff ordered for diarrhea -Coronavirus PCR negative #Hepatic encephalopathy-resolved -CT scan head negative for acute findings -patient back to baseline per -ammonia level 75 -he is prescribed lactulose at home but was not taking it; agreed to start #Chronic liver disease and cirrhosis #Esophageal varices -Continue propranolol and furosemide -outpatient GI follow-up. -no active bleeding at this time #Hyponatremia syndrome -likely due to cirrhosis -IV fluid resuscitation therapy, BMP, repeat BMP in a.m., monitor fluid balance #Hypokalemia -Chronic, will continue potassium supplementation #Metabolic acidosis #Lactic acidosis -resolved, likely secondary to cirrhosis #Chronic pain syndrome -continue fentanyl patch #Elevated partial thromboplastin time (PTT) -Suspected secondary to chronic liver disease, continue to monitor. No active bleeding at this time. #Advanced care planning -Disease education data, care plan discussed, diagnoses discussed, prognosis discussed, patient is full code, patient and acknowledges understanding and agreement with care plan, +30 minutes. History Interval history: No acute events overnight. Patient seen at bedside along with . Per patient back to baseline. Patient only reports having diarrhea which started once he came to the hospital. He denies fevers, chills, night sweats at home. He has no complaints at this time. Hospitalist Physical - Physical exam Narrative exam: GENERAL: Well-developed well-nourished. In no acute distress. HEENT: Normocephalic. Atraumatic. NECK: Supple. CHEST/LUNGS: CTAB on room air HEART/CARDIOVASCULAR: RRR. No murmur, rubs or gallops appreciated. ABDOMEN: +BS. Palpable liver, mild distention w/o fluid wave. Mild tenderness to palpation without rebound or guarding. SKIN: No rashes noted. NEURO: No focal motor deficit. Follows all commands. MUSCULOSKELETAL: No joint effusion EXTREMITIES: No cyanosis, clubbing or edema. PSYCH: Cooperative. - Constitutional Vitals: Temp Pulse Resp BP Pulse Ox 98.3 F 51 L 18 116/48 95 10/30/21 07:17 10/30/21 07:17 10/30/21 07:17 10/30/21 07:17 10/30/21 10:10 General appearance: Present: mild distress HEART Score - HEART Score Troponin: Troponin T 0.013 ng/mL (0.00-0.029) 10/29/21 10:00 Results - Labs CBC & Chem 7: 10/29/21 10:00 10/30/21 04:36 Labs: Laboratory Last Values WBC 10.7 K/mm3 (4.5-11.0) 10/29/21 10:00 RBC 3.95 M/mm3 (3.65-5.03) 10/29/21 10:00 Hgb 12.6 gm/dl (11.8-15.2) 10/29/21 10:00 Hct 36.6 % (35.5-45.6) 10/29/21 10:00 MCV 93 fl (84-94) 10/29/21 10:00 MCH 32 pg (28-32) 10/29/21 10:00 MCHC 35 % (32-34) H 10/29/21 10:00 RDW 15.3 % (13.2-15.2) H 10/29/21 10:00 Plt Count 83 K/mm3 (140-440) L 10/29/21 10:00 Green % (Auto) Electromechanic 10/29/21 10:00 Add Manual Diff Complete 10/29/21 10:00 Total Counted 100 10/29/21 10:00 Seg Neuts % (Manual) 71.0 % (40.0-70.0) H 10/29/21 10:00 Band Neutrophils % 0 % 10/29/21 10:00 Lymphocytes % (Manual) 13.0 % (13.4-35.0) L 10/29/21 10:00 Reactive Lymphs % (Man) 2.0 % 10/29/21 10:00 Monocytes % (Manual) 13.0 % (0.0-7.3) H 10/29/21 10:00 Eosinophils % (Manual) 0 % (0.0-4.3) 10/29/21 10:00 Basophils % (Manual) 1.0 % (0.0-1.8) 10/29/21 10:00 Metamyelocytes % 0 % 10/29/21 10:00 Myelocytes % 0 % 10/29/21 10:00 Promyelocytes % 0 % 10/29/21 10:00 Blast Cells % 0 % 10/29/21 10:00 Nucleated RBC % Not Reportable 10/29/21 10:00 Seg Neutrophils # Man 7.6 K/mm3 (1.8-7.7) 10/29/21 10:00 Band Neutrophils # 0.0 K/mm3 10/29/21 10:00 Lymphocytes # (Manual) 1.4 K/mm3 (1.2-5.4) 10/29/21 10:00 Abs React Lymphs (Man) 0.2 K/mm3 10/29/21 10:00 Monocytes # (Manual) 1.4 K/mm3 (0.0-0.8) H 10/29/21 10:00 Eosinophils # (Manual) 0.0 K/mm3 (0.0-0.4) 10/29/21 10:00 Basophils # (Manual) 0.1 K/mm3 (0.0-0.1) 10/29/21 10:00 Metamyelocytes # 0.0 K/mm3 10/29/21 10:00 Myelocytes # 0.0 K/mm3 10/29/21 10:00 Promyelocytes # 0.0 K/mm3 10/29/21 10:00 Blast Cells # 0.0 K/mm3 10/29/21 10:00 WBC Morphology Not Reportable 10/29/21 10:00 Hypersegmented Neuts Not Reportable 10/29/21 10:00 Hyposegmented Neuts Few 10/29/21 10:00 Hypogranular Neuts Not Reportable 10/29/21 10:00 Smudge Cells Not Reportable 10/29/21 10:00 Toxic Granulation Not Reportable 10/29/21 10:00 Toxic Vacuolation Not Reportable 10/29/21 10:00 Dohle Bodies Not Reportable 10/29/21 10:00 Pelger-Huet Anomaly Not Reportable 10/29/21 10:00 Usman Rods Not Reportable 10/29/21 10:00 Platelet Estimate Consistent w auto 10/29/21 10:00 Clumped Platelets Not Reportable 10/29/21 10:00 Plt Clumps, EDTA Not Reportable 10/29/21 10:00 Large Platelets Not Reportable 10/29/21 10:00 Giant Platelets Not Reportable 10/29/21 10:00 Platelet Satelliting Not Reportable 10/29/21 10:00 Plt Morphology Comment Not Reportable 10/29/21 10:00 RBC Morphology Not Reportable 10/29/21 10:00 Dimorphic RBCs Not Reportable 10/29/21 10:00 Polychromasia Rare 10/29/21 10:00 Hypochromasia Not Reportable 10/29/21 10:00 Poikilocytosis Not Reportable 10/29/21 10:00 Anisocytosis 1+ 10/29/21 10:00 Microcytosis Few 10/29/21 10:00 Macrocytosis Not Reportable 10/29/21 10:00 Spherocytes Not Reportable 10/29/21 10:00 Pappenheimer Bodies Not Reportable 10/29/21 10:00 Sickle Cells Not Reportable 10/29/21 10:00 Target Cells Not Reportable 10/29/21 10:00 Tear Drop Cells Not Reportable 10/29/21 10:00 Ovalocytes Not Reportable 10/29/21 10:00 Helmet Cells Not Reportable 10/29/21 10:00 [place] Bodies Not Reportable 10/29/21 10:00 [place] Rings Not Reportable 10/29/21 10:00 Xavier Cells Not Reportable 10/29/21 10:00 Bite Cells Not Reportable 10/29/21 10:00 Crenated Cell Not Reportable 10/29/21 10:00 Elliptocytes Not Reportable 10/29/21 10:00 Acanthocytes (Spur) Not Reportable 10/29/21 10:00 Rouleaux Not Reportable 10/29/21 10:00 Hemoglobin C Crystals Not Reportable 10/29/21 10:00 Schistocytes Not Reportable 10/29/21 10:00 Malaria parasites Not Reportable 10/29/21 10:00 Jose Bodies Not Reportable 10/29/21 10:00 Hem Pathologist Commnt No 10/29/21 10:00 PT 19.2 Sec. (12.2-14.9) H 10/29/21 10:00 INR 1.43 (0.87-1.13) H 10/29/21 10:00 APTT 39.6 Sec. (24.2-36.6) H 10/29/21 10:00 Sodium 134 mmol/L (137-145) L 10/30/21 04:36 Potassium 3.3 mmol/L (3.6-5.0) L 10/30/21 04:36 Chloride 102.6 mmol/L (98-107) 10/30/21 04:36 Carbon Dioxide 21 mmol/L (22-30) L 10/30/21 04:36 Anion Gap 14 mmol/L 10/30/21 04:36 BUN 14 mg/dL (9-20) 10/30/21 04:36 Creatinine 0.7 mg/dL (0.8-1.3) L 10/30/21 04:36 Estimated GFR > 60 ml/min 10/30/21 04:36 BUN/Creatinine Ratio 20 % 10/30/21 04:36 Glucose 119 mg/dL (75-100) H 10/30/21 04:36 Lactic Acid 1.70 mmol/L (0.7-2.0) 10/30/21 04:36 Calcium 8.0 mg/dL (8.4-10.2) L 10/30/21 04:36 Magnesium 1.60 mg/dL (1.7-2.3) L 10/30/21 04:36 Total Bilirubin 2.90 mg/dL (0.1-1.2) H 10/30/21 04:36 AST 54 units/L (5-40) H 10/30/21 04:36 ALT 21 units/L (7-56) 10/30/21 04:36 Alkaline Phosphatase 77 units/L (35-129) 10/30/21 04:36 Ammonia 75.0 umol/L (25-60) H 10/29/21 10:00 Troponin T 0.013 ng/mL (0.00-0.029) 10/29/21 10:00 Total Protein 5.7 g/dL (6.3-8.2) L 10/30/21 04:36 Albumin 2.9 g/dL (3.9-5) L 10/30/21 04:36 Albumin/Globulin Ratio 1.0 % 10/30/21 04:36 Urine Color Heather (Yellow) 10/29/21 11:28 Urine Turbidity Clear (Clear) 10/29/21 11:28 Urine pH 6.5 (5.0-7.0) 10/29/21 11:28 Ur Specific [place] 1.010 (1.003-1.030) 10/29/21 11:28 Urine Protein <15 mg/dl mg/dL (Negative) 10/29/21 11:28 Urine Glucose (UA) Negative mg/dL (Negative) 10/29/21 11:28 Urine Ketones Negative mg/dL (Negative) 10/29/21 11:28 Urine Blood Negative (Negative) 10/29/21 11:28 Urine Nitrite Negative (Negative) 10/29/21 11:28 Ur Reducing Substances Not Reportable 10/29/21 11:28 Urine Bilirubin Negative (Negative) 10/29/21 11:28 Urine Ictotest Not Reportable 10/29/21 11:28 Urine Urobilinogen 8.0 mg/dL (<2.0) H 10/29/21 11:28 Ur Leukocyte Esterase Negative (Negative) 10/29/21 11:28 Urine WBC (Auto) 2.0 /HPF (0.0-6.0) 10/29/21 11:28 Urine RBC (Auto) 9.0 /HPF (0.0-6.0) 10/29/21 11:28 U Epithel Cells (Auto) 2.0 /HPF (0-13.0) 10/29/21 11:28 Salicylates < 0.3 mg/dL (2.8-20.0) L 10/29/21 10:00 Urine Opiates Screen Negative 10/29/21 11:28 Urine Methadone Screen Negative 10/29/21 11:28 Acetaminophen 5.0 ug/mL (10.0-30.0) L 10/29/21 10:00 Ur Barbiturates Screen Positive 10/29/21 11:28 Ur Phencyclidine Scrn Negative 10/29/21 11:28 Ur Amphetamines Screen Negative 10/29/21 11:28 U Benzodiazepines Scrn Negative 10/29/21 11:28 Urine Cocaine Screen Negative 10/29/21 11:28 U Marijuana (THC) Screen Negative 10/29/21 11:28 Drugs of Abuse Note Disclamer 10/29/21 11:28 SARS-CoV-2 (PCR) Negative (Negative) 10/30/21 09:50 Schumacher/IV: Voiding Method Incontinent Active Medications - Current Medications Current Medications: Generic Name Dose Route Start Last Admin Trade Name Freq PRN Reason Stop Dose Admin Albuterol 2.5 mg 10/29/21 20:38 Albuterol 2.5 Mg/3 Ml Nebu IH Q4HRT PRN Shortness Of Breath Hydromorphone HCl 0.5 mg 10/29/21 20:38 Hydromorphone 0.5 Mg/0.5 Ml Inj IV Q6H PRN Pain , Severe (7-10) Sodium Chloride 1,000 mls @ 42 mls/hr 10/29/21 20:45 10/30/21 00:44 Nacl 0.9% 1000 Ml IV 42 mls/hr DIRECT ESPINOZA Administration Ibuprofen 400 mg 10/30/21 02:00 10/30/21 10:51 Ibuprofen 400 Mg Tab PO 400 mg Q6H PRN Administration Pain, Mild (1-3) Ibuprofen 200 mg 10/30/21 01:06 10/30/21 01:26 Ibuprofen 200 Mg Tab PO 200 mg Q6H PRN Administration Pain, Mild (1-3) Ondansetron HCl 4 mg 10/29/21 20:38 Ondansetron 4 Mg/2 Ml Inj IV Q8H PRN Nausea And Vomiting Oxycodone/Acetaminophen 1 tab 10/29/21 20:38 10/30/21 03:57 Oxycodone /Acetaminophen 5-325mg Tab PO 1 tab Q12H PRN Administration Pain, Moderate (4-6) Potassium Chloride 40 meq 10/30/21 09:00 10/30/21 08:44 Potassium Chloride Er 20 Meq Tab PO 10/30/21 14:00 40 meq ONCE@0900 ESPINOZA Administration Sodium Chloride 10 ml 10/29/21 22:00 10/30/21 10:51 Sodium Chloride 0.9% 10 Ml Flush Syringe IV 10 ml BID ESPINOZA Administration Sodium Chloride 10 ml 10/29/21 20:38 Sodium Chloride 0.9% 10 Ml Flush Syringe IV PRN PRN LINE FLUSH
[2021-10-30] MEDS ORDERED: fentaNYL 12 MCG/HR PATCH 72HR TD SCH (13:00)
[2021-10-30] MEDS: PRIMIDONE 50 MG TAB PO SCH ×3 (13:07→22:10)
[2021-10-30] MEDS: FUROSEMIDE 20 MG TAB PO SCH (13:07)
[2021-10-30] MEDS: PROPRANOLOL 10 MG TAB PO SCH (22:11)
[2021-10-31 08:16] VITALS: BP 145/84
--- NOTE | 2021-10-31 08:50 | Progress Note ---
Assessment and Plan Assessment and plan: #Sepsis #possible enterocolitis -tachycardia, febrile -Blood cultures ordered, UA and urine culture pending -CT abdomen shows possible enterocolitis -due to cirrhosis, will start rocephin for probable intraabdominal infection -c diff ordered for diarrhea -Coronavirus PCR negative #Hepatic encephalopathy-resolved -CT scan head negative for acute findings -patient back to baseline per -ammonia level 75 -he is prescribed lactulose at home but was not taking it; agreed to start #Chronic liver disease and cirrhosis #Esophageal varices -Continue propranolol and furosemide -outpatient GI follow-up. -no active bleeding at this time #Hyponatremia syndrome -likely due to cirrhosis -IV fluid resuscitation therapy, BMP, repeat BMP in a.m., monitor fluid balance #Hypokalemia -Chronic, will continue potassium supplementation #Metabolic acidosis #Lactic acidosis -resolved, likely secondary to cirrhosis #Chronic pain syndrome -continue fentanyl patch #Elevated partial thromboplastin time (PTT) -Suspected secondary to chronic liver disease, continue to monitor. No active bleeding at this time. History Interval history: Patient was seen and evaluated this morning Patient did not have any new complaints Hospitalist Physical - Physical exam Narrative exam: Not in cardiopulmonary distress. The patient appeared well nourished and normally developed. Vital signs as documented. Head exam is unremarkable. No scleral icterus . Neck is without jugular venous distension, thyromegaly, or carotid bruits. Lungs are clear to auscultation. Cardiac exam reveals regular rate and Rhythm. Abdominal exam reveals normal bowel sounds, nontender, no organomegaly. Extremities are nonedematous and both femoral and pedal pulses are normal. 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 No focal weakness. - Constitutional Vitals: Temp Pulse Resp BP Pulse Ox 98.2 F 78 18 145/84 98 10/31/21 08:15 10/31/21 08:15 10/31/21 08:15 10/31/21 08:15 10/31/21 08:15 General appearance: Present: mild distress HEART Score - HEART Score Troponin: Troponin T 0.013 ng/mL (0.00-0.029) 10/29/21 10:00 Results - Labs CBC & Chem 7: 10/29/21 10:00 10/30/21 04:36 Labs: Laboratory Last Values WBC 10.7 K/mm3 (4.5-11.0) 10/29/21 10:00 RBC 3.95 M/mm3 (3.65-5.03) 10/29/21 10:00 Hgb 12.6 gm/dl (11.8-15.2) 10/29/21 10:00 Hct 36.6 % (35.5-45.6) 10/29/21 10:00 MCV 93 fl (84-94) 10/29/21 10:00 MCH 32 pg (28-32) 10/29/21 10:00 MCHC 35 % (32-34) H 10/29/21 10:00 RDW 15.3 % (13.2-15.2) H 10/29/21 10:00 Plt Count 83 K/mm3 (140-440) L 10/29/21 10:00 [place] % (Auto) [employer] 10/29/21 10:00 Add Manual Diff Complete 10/29/21 10:00 Total Counted 100 10/29/21 10:00 Seg Neuts % (Manual) 71.0 % (40.0-70.0) H 10/29/21 10:00 Band Neutrophils % 0 % 10/29/21 10:00 Lymphocytes % (Manual) 13.0 % (13.4-35.0) L 10/29/21 10:00 Reactive Lymphs % (Man) 2.0 % 10/29/21 10:00 Monocytes % (Manual) 13.0 % (0.0-7.3) H 10/29/21 10:00 Eosinophils % (Manual) 0 % (0.0-4.3) 10/29/21 10:00 Basophils % (Manual) 1.0 % (0.0-1.8) 10/29/21 10:00 Metamyelocytes % 0 % 10/29/21 10:00 Myelocytes % 0 % 10/29/21 10:00 Promyelocytes % 0 % 10/29/21 10:00 Blast Cells % 0 % 10/29/21 10:00 Nucleated RBC % Not Reportable 10/29/21 10:00 Seg Neutrophils # Man 7.6 K/mm3 (1.8-7.7) 10/29/21 10:00 Band Neutrophils # 0.0 K/mm3 10/29/21 10:00 Lymphocytes # (Manual) 1.4 K/mm3 (1.2-5.4) 10/29/21 10:00 Abs React Lymphs (Man) 0.2 K/mm3 10/29/21 10:00 Monocytes # (Manual) 1.4 K/mm3 (0.0-0.8) H 10/29/21 10:00 Eosinophils # (Manual) 0.0 K/mm3 (0.0-0.4) 10/29/21 10:00 Basophils # (Manual) 0.1 K/mm3 (0.0-0.1) 10/29/21 10:00 Metamyelocytes # 0.0 K/mm3 10/29/21 10:00 Myelocytes # 0.0 K/mm3 10/29/21 10:00 Promyelocytes # 0.0 K/mm3 10/29/21 10:00 Blast Cells # 0.0 K/mm3 10/29/21 10:00 WBC Morphology Not Reportable 10/29/21 10:00 Hypersegmented Neuts Not Reportable 10/29/21 10:00 Hyposegmented Neuts Few 10/29/21 10:00 Hypogranular Neuts Not Reportable 10/29/21 10:00 Smudge Cells Not Reportable 10/29/21 10:00 Toxic Granulation Not Reportable 10/29/21 10:00 Toxic Vacuolation Not Reportable 10/29/21 10:00 Dohle Bodies Not Reportable 10/29/21 10:00 Pelger-Huet Anomaly Not Reportable 10/29/21 10:00 Usman Rods Not Reportable 10/29/21 10:00 Platelet Estimate Consistent w auto 10/29/21 10:00 Clumped Platelets Not Reportable 10/29/21 10:00 Plt Clumps, EDTA Not Reportable 10/29/21 10:00 Large Platelets Not Reportable 10/29/21 10:00 Giant Platelets Not Reportable 10/29/21 10:00 Platelet Satelliting Not Reportable 10/29/21 10:00 Plt Morphology Comment Not Reportable 10/29/21 10:00 RBC Morphology Not Reportable 10/29/21 10:00 Dimorphic RBCs Not Reportable 10/29/21 10:00 Polychromasia Rare 10/29/21 10:00 Hypochromasia Not Reportable 10/29/21 10:00 Poikilocytosis Not Reportable 10/29/21 10:00 Anisocytosis 1+ 10/29/21 10:00 Microcytosis Few 10/29/21 10:00 Macrocytosis Not Reportable 10/29/21 10:00 Spherocytes Not Reportable 10/29/21 10:00 Pappenheimer Bodies Not Reportable 10/29/21 10:00 Sickle Cells Not Reportable 10/29/21 10:00 Target Cells Not Reportable 10/29/21 10:00 Tear Drop Cells Not Reportable 10/29/21 10:00 Ovalocytes Not Reportable 10/29/21 10:00 Helmet Cells Not Reportable 10/29/21 10:00 [place] Bodies Not Reportable 10/29/21 10:00 [place] Rings Not Reportable 10/29/21 10:00 Xavier Cells Not Reportable 10/29/21 10:00 Bite Cells Not Reportable 10/29/21 10:00 Crenated Cell Not Reportable 10/29/21 10:00 Elliptocytes Not Reportable 10/29/21 10:00 Acanthocytes (Spur) Not Reportable 10/29/21 10:00 Rouleaux Not Reportable 10/29/21 10:00 Hemoglobin C Crystals Not Reportable 10/29/21 10:00 Schistocytes Not Reportable 10/29/21 10:00 Malaria parasites Not Reportable 10/29/21 10:00 Jose Bodies Not Reportable 10/29/21 10:00 Hem Pathologist Commnt No 10/29/21 10:00 PT 19.2 Sec. (12.2-14.9) H 10/29/21 10:00 INR 1.43 (0.87-1.13) H 10/29/21 10:00 APTT 39.6 Sec. (24.2-36.6) H 10/29/21 10:00 Sodium 134 mmol/L (137-145) L 10/30/21 04:36 Potassium 3.3 mmol/L (3.6-5.0) L 10/30/21 04:36 Chloride 102.6 mmol/L (98-107) 10/30/21 04:36 Carbon Dioxide 21 mmol/L (22-30) L 10/30/21 04:36 Anion Gap 14 mmol/L 10/30/21 04:36 BUN 14 mg/dL (9-20) 10/30/21 04:36 Creatinine 0.7 mg/dL (0.8-1.3) L 10/30/21 04:36 Estimated GFR > 60 ml/min 10/30/21 04:36 BUN/Creatinine Ratio 20 % 10/30/21 04:36 Glucose 119 mg/dL (75-100) H 10/30/21 04:36 Lactic Acid 1.70 mmol/L (0.7-2.0) 10/30/21 04:36 Calcium 8.0 mg/dL (8.4-10.2) L 10/30/21 04:36 Magnesium 1.60 mg/dL (1.7-2.3) L 10/30/21 04:36 Total Bilirubin 2.90 mg/dL (0.1-1.2) H 10/30/21 04:36 AST 54 units/L (5-40) H 10/30/21 04:36 ALT 21 units/L (7-56) 10/30/21 04:36 Alkaline Phosphatase 77 units/L (35-129) 10/30/21 04:36 Ammonia 75.0 umol/L (25-60) H 10/29/21 10:00 Troponin T 0.013 ng/mL (0.00-0.029) 10/29/21 10:00 Total Protein 5.7 g/dL (6.3-8.2) L 10/30/21 04:36 Albumin 2.9 g/dL (3.9-5) L 10/30/21 04:36 Albumin/Globulin Ratio 1.0 % 10/30/21 04:36 Urine Color [place] (Yellow) 10/29/21 11:28 Urine Turbidity Clear (Clear) 10/29/21 11:28 Urine pH 6.5 (5.0-7.0) 10/29/21 11:28 Ur Specific [place] 1.010 (1.003-1.030) 10/29/21 11:28 Urine Protein <15 mg/dl mg/dL (Negative) 10/29/21 11:28 Urine Glucose (UA) Negative mg/dL (Negative) 10/29/21 11:28 Urine Ketones Negative mg/dL (Negative) 10/29/21 11:28 Urine Blood Negative (Negative) 10/29/21 11:28 Urine Nitrite Negative (Negative) 10/29/21 11:28 Ur Reducing Substances Not Reportable 10/29/21 11:28 Urine Bilirubin Negative (Negative) 10/29/21 11:28 Urine Ictotest Not Reportable 10/29/21 11:28 Urine Urobilinogen 8.0 mg/dL (<2.0) H 10/29/21 11:28 Ur Leukocyte Esterase Negative (Negative) 10/29/21 11:28 Urine WBC (Auto) 2.0 /HPF (0.0-6.0) 10/29/21 11:28 Urine RBC (Auto) 9.0 /HPF (0.0-6.0) 10/29/21 11:28 U Epithel Cells (Auto) 2.0 /HPF (0-13.0) 10/29/21 11:28 Salicylates < 0.3 mg/dL (2.8-20.0) L 10/29/21 10:00 Urine Opiates Screen Negative 10/29/21 11:28 Urine Methadone Screen Negative 10/29/21 11:28 Acetaminophen 5.0 ug/mL (10.0-30.0) L 10/29/21 10:00 Ur Barbiturates Screen Positive 10/29/21 11:28 Ur Phencyclidine Scrn Negative 10/29/21 11:28 Ur Amphetamines Screen Negative 10/29/21 11:28 U Benzodiazepines Scrn Negative 10/29/21 11:28 Urine Cocaine Screen Negative 10/29/21 11:28 U Marijuana (THC) Screen Negative 10/29/21 11:28 Drugs of Abuse Note Disclamer 10/29/21 11:28 SARS-CoV-2 (PCR) Negative (Negative) 10/30/21 09:50 Microbiology: Microbiology 10/30/21 09:27 Peripheral/Venous Blood Culture - Preliminary Culture in Progress 10/30/21 09:27 Peripheral/Venous Blood Culture - Preliminary Culture in Progress Schumacher/IV: Voiding Method Incontinent Active Medications - Current Medications Current Medications: Generic Name Dose Route Start Last Admin Trade Name Freq PRN Reason Stop Dose Admin Albuterol 2.5 mg 10/29/21 20:38 Albuterol 2.5 Mg/3 Ml Nebu IH Q4HRT PRN Shortness Of Breath Fentanyl 1 applic 10/30/21 13:00 10/30/21 13:17 Fentanyl 12 Mcg/Hr Patch 72hr TD 1 applic Q72H ESPINOZA Administration Furosemide 20 mg 10/30/21 13:00 10/30/21 13:07 Furosemide 20 Mg Tab PO 20 mg QDAY ESPINOZA Administration Hydromorphone HCl 0.5 mg 10/29/21 20:38 Hydromorphone 0.5 Mg/0.5 Ml Inj IV Q6H PRN Pain , Severe (7-10) Sodium Chloride 1,000 mls @ 42 mls/hr 10/29/21 20:45 10/30/21 00:44 Nacl 0.9% 1000 Ml IV 42 mls/hr DIRECT ESPINOZA Administration Ibuprofen 400 mg 10/30/21 02:00 10/30/21 10:51 Ibuprofen 400 Mg Tab PO 400 mg Q6H PRN Administration Pain, Mild (1-3) Ibuprofen 200 mg 10/30/21 01:06 10/30/21 01:26 Ibuprofen 200 Mg Tab PO 200 mg Q6H PRN Administration Pain, Mild (1-3) Lactulose 10 gm 10/31/21 10:00 Lactulose 20 Gm/30 Ml Oral Liqd PO QDAY ESPINOZA Ondansetron HCl 4 mg 10/29/21 20:38 Ondansetron 4 Mg/2 Ml Inj IV Q8H PRN Nausea And Vomiting Oxycodone/Acetaminophen 1 tab 10/29/21 20:38 10/30/21 03:57 Oxycodone /Acetaminophen 5-325mg Tab PO 1 tab Q12H PRN Administration Pain, Moderate (4-6) Potassium Chloride 10 meq 10/31/21 10:00 Potassium Chloride Er 10 Meq Tab PO QDAY ESPINOZA Potassium Chloride 40 meq 10/31/21 09:00 Potassium Chloride Er 20 Meq Tab PO 10/31/21 13:00 ONCE@0900 ESPINOZA Primidone 100 mg 10/30/21 14:00 10/30/21 22:10 Primidone 50 Mg Tab PO 100 mg QID ESPINOZA Administration Propranolol HCl 30 mg 10/30/21 22:00 10/30/21 22:11 Propranolol 10 Mg Tab PO 30 mg BID ESPINOZA Administration Sodium Chloride 10 ml 10/29/21 22:00 10/30/21 22:12 Sodium Chloride 0.9% 10 Ml Flush Syringe IV 10 ml BID ESPINOZA Administration Sodium Chloride 10 ml 10/29/21 20:38 Sodium Chloride 0.9% 10 Ml Flush Syringe IV PRN PRN LINE FLUSH
[2021-10-31] MEDS ORDERED: POTASSIUM CHLORIDE ER 20 MEQ TAB PO SCH (09:00)
[2021-10-31] MEDS: oxyCODONE /ACETAMINOPHEN 5-325MG TAB PO PRN (09:04)
[2021-10-31] MEDS: PRIMIDONE 50 MG TAB PO SCH (09:05)
[2021-10-31] MEDS: FUROSEMIDE 20 MG TAB PO SCH (09:05)
[2021-10-31] MEDS: PROPRANOLOL 10 MG TAB PO SCH (09:09)
[2021-10-31] MEDS ORDERED: POTASSIUM CHLORIDE ER 10 MEQ TAB PO SCH (10:00)
[2021-10-31] MEDS ORDERED: LACTULOSE 20 GM/30 ML ORAL LIQD PO SCH (10:00)
[2021-10-31] MEDS ORDERED: cefTRIAXone/NS 2 GM/100 ML 2 GM/100 ML BAG IV SCH (10:00)
--- NOTE | 2021-10-31 12:03 | Discharge Summary ---
Providers - Providers Date of Admission: 10/29/21 20:39 Date of discharge: 10/31/21 Attending physician: LUDIWG CARMONA MD Primary care physician: Follow-up [facility] physicians Hospitalization Reason for admission: Hepatic encephalopathy, Sepsis Condition: Stable Hospital course: 61 YO Male with Chronic Liver disease complicated by Cirrhosis, CPS on Opioid therapy, Parkinsons Disease, Vascular Dementia, Cerebral Atherosclerosis presents to ED for evaluation. Patient is confused with diminished cognition at the time my evaluation and unable to provide history. Patient history taken EMS staff, ED staff, as well as patient who is at bedside for exam and interview. As per reports "he is more weak and confused today". Patient reports that over the past 1 week the patient has experienced increased weakness and confusion with acutely worsening symptoms over the past 24 hours. EMS was notified and upon arrival the patient was found to be in distress and subsequent transported to [facility] for further care and evaluation of the aforementioned symptoms. The patient was seen and evaluated emergency department. All lab and imaging studies reviewed. Patient found to have chronic liver disease, hyperammonemia, hepatic encephalopathy, metabolic acidosis, malnutrition, hyponatremia, and elevated prothrombin time. Patient ad mitted to telemetry due to increased risk of worsening symptoms and for medical stabilization. No reports of fever, chills, chest pain, palpitation, adductive cough, skin rash, recent contact, known exposure to COVID-19. No prior admission for review. No medication listed at time of admission for reconciliation. Advanced care planning conducted in ED. Patient has diminished cognition but has a positive gag reflex and is able to protect his airway without difficulty the time my evaluation. Hospital course #Sepsis #possible enterocolitis -tachycardia, febrile -Blood cultures ordered, UA and urine culture pending -CT abdomen shows possible enterocolitis -due to cirrhosis, will start rocephin for probable intraabdominal infection -c diff ordered for diarrhea -Coronavirus PCR negative #Hepatic encephalopathy-resolved -CT scan head negative for acute findings -patient back to baseline per -ammonia level 75 -he is prescribed lactulose at home but was not taking it; agreed to start #Chronic liver disease and cirrhosis #Esophageal varices -Continue propranolol and furosemide -outpatient GI follow-up. -no active bleeding at this time #Hyponatremia syndrome -likely due to cirrhosis -IV fluid resuscitation therapy, BMP, repeat BMP in a.m., monitor fluid balance #Hypokalemia -Chronic, will continue potassium supplementation #Metabolic acidosis #Lactic acidosis -resolved, likely secondary to cirrhosis #Chronic pain syndrome -continue fentanyl patch #Elevated partial thromboplastin time (PTT) -Suspected secondary to chronic liver disease, continue to monitor. No active bleeding at this time. Patient was seen and evaluated this morning, patient was alert and oriented. His was in the room and she said patient was at his baseline. His said he was not taking his lactulose at home was the cause of his hepatic encephalopathy. WBC come back to normal level, lactic acid level was normalized. No abdominal pain patient was eating and drinking okay. Blood culture was positive. I will discharge the patient with Augmentin. Patient was hemodynamically stable at the time of discharge. Patient is followed with neurologist and primary care physician at [facility]. Management plan was discussed with the patient and his and was in agreement with the plan of care. Patient's said they have enough lactulose at home and does not need a prescription. Disposition: 30 STILL A PATIENT Final Discharge Diagnosis (Prints w/discharge instructions): Hepatic encephalopathy. Sepsis due to enterocolitis Time spent for discharge: 32 minutes - Discharge Diagnoses (1) Sepsis Status: Acute Qualifiers: Sepsis type: sepsis due to unspecified organism Sepsis acute organ dysfunction status: without acute organ dysfunction Qualified Code(s): A41.9 - Sepsis, unspecified organism (2) Chronic liver disease and cirrhosis Status: Acute (3) Hyperammonemia Status: Acute (4) Enterocolitis Status: Acute (5) Hepatic encephalopathy Status: Acute Core Measure Documentation - Palliative Care Palliative Care/ Comfort Measures: Not Applicable - Core Measures Any of the following diagnoses?: none Exam - Physical Exam Narrative exam: Not in cardiopulmonary distress. The patient appeared well nourished and normally developed. Vital signs as documented. Head exam is unremarkable. No scleral icterus . Neck is without jugular venous distension, thyromegaly, or carotid bruits. Lungs are clear to auscultation. Cardiac exam reveals regular rate and Rhythm. Abdominal exam reveals normal bowel sounds, nontender, no organomegaly. Extremities are nonedematous and both femoral and pedal pulses are normal. 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 No focal weakness. - Constitutional Vitals: Temp Pulse Resp BP Pulse Ox 98.2 F 78 18 145/84 98 10/31/21 08:15 10/31/21 08:15 10/31/21 08:15 10/31/21 08:15 10/31/21 08:15 Plan Activity: no restrictions Weight Bearing Status: Full Weight Bearing Diet: regular Follow up with: KAYLEY HOLLIS [Other] - 3-5 Days Prescriptions: Amoxicillin/K Clav Tab [Augmentin 875 mg] 1 tab PO Q12HR #10 tab
== END 2021-10-31 17:02 | disposition home or self-care (01) | DRG 872 ==
LOC: ED 08:44 → 4A 20:39
PROVIDERS: ADMIT Internal Medicine; ATTEND Internal Medicine
DX: A41.9 Sepsis, unspecified organism (principal); E72.20 Disorder of urea cycle metabolism, unspecified; E87.1 Hypo-osmolality and hyponatremia; I85.00 Esophageal varices without bleeding; E87.2 Acidosis; R18.8 Other ascites; K74.60 Unspecified cirrhosis of liver; K72.90 Hepatic failure, unspecified without coma; G89.4 Chronic pain syndrome; E87.6 Hypokalemia; K52.9 Noninfective gastroenteritis and colitis, unspecified; Z20.822 Contact with and (suspected) exposure to COVID-19; Z88.0 Allergy status to penicillin; Z83.3 Family history of diabetes mellitus; Z82.49 Family history of ischemic heart disease and other diseases of the circulatory system
CPT/HCPCS: 36415; 70450; 74177; 80053; 80307; 80320; 81001; 82140; 83735; 84484; 85007; 85025; 85610; 85730; 87040; 93005; 94640; G0378; G0480; J0696; J3475; J7030; Q9967; U0003